=== PATIENT | male | born 1980 | race Caucasian/White ===

== ENCOUNTER 2017-09-26 18:46 | Emergency (ER) | payer OTHER ==
[2017-09-26 19:21] VITALS: BP 146/98; PULSE 72; TEMP 98.8; BMI 32.1
--- NOTE | 2017-09-26 19:21 | PDOC ---
Rapid Medical Evaluation Time Seen by Provider: 09/26/17 19:15 Medical Evaluation: 09/26/17 19:15 The patient presents with a chief complaint of: Swollen L cheek and ear pain since Friday. Possible tooth pain. Allergic to PCN (hives). Smokes a pack every three days. I have performed a brief in-person evaluation of this patient; Pertinent physical exam findings: lesion to gum near parotid gland in L mouth I have ordered the following: Nothing The patient will proceed to the ED for further evaluation.
--- NOTE | 2017-09-26 20:28 | PDOC ---
History of Present Illness - General Chief Complaint: Toothache Stated Complaint: PAIN Time Seen by Provider: 09/26/17 19:15 - History of Present Illness Initial Comments: 09/26/17 23:01 not seen by Val Past History - Past Medical History Allergies/Adverse Reactions: Allergies Allergy/AdvReac Type Severity Reaction Status Date / Time Penicillins Allergy Intermediate Verified 09/26/17 19:22 Home Medications: Ambulatory Orders Clindamycin [Cleocin -] 300 mg PO Q8H #30 capsule 09/26/17 Oxycodone HCl/Acetaminophen [Percocet 5-325 mg Tablet] 1 - 2 tab PO Q6H #20 tab MDD 8 09/26/17 - Suicide/Smoking/Psychosocial Hx Smoking History: Current every day smoker Have you smoked in the past 12 months: Yes Number of Cigarettes Smoked Daily: 5 Information on smoking cessation initiated: No Hx Alcohol Use: No Drug/Substance Use Hx: No *Physical Exam - Vital Signs Last Vital Signs Temp Pulse Resp BP Pulse Ox 98.8 F 72 68 H 146/98 100 09/26/17 19:14 09/26/17 19:14 09/26/17 19:14 09/26/17 19:14 09/26/17 19:14 *DC/Admit/Observation/Transfer Diagnosis at time of Disposition: Dental abscess - Discharge Dispostion Disposition: HOME Condition at time of disposition: Stable - Prescriptions Prescriptions: Clindamycin [Cleocin -] 300 mg PO Q8H #30 capsule Oxycodone HCl/Acetaminophen [Percocet 5-325 mg Tablet] 1 - 2 tab PO Q6H #20 tab MDD 8 - Referrals - Patient Instructions Printed Discharge Instructions: DI for Tooth Abscess Additional Instructions: Warm soaks to face, warm saltwater gargles Please follow-up with urgent care dental between 9 and 5 tomorrow [phone] - Post Discharge Activity Forms/Work/School Notes: Back to Work
--- NOTE | 2017-09-26 21:00 | PDOC ---
History of Present Illness - General Chief Complaint: Toothache Stated Complaint: PAIN Time Seen by Provider: 09/26/17 19:15 History Source: Patient Exam Limitations: No Limitations - History of Present Illness Initial Comments: 09/26/17 22:00 Patient is a [36-year-old male, denies any significant medical history currently on no medication presents with left lower first molar dental pain with facial swelling. Patient was seen at urgent care today and sent to emergency department for evaluation . Patient denies any fever, no difficulty swallowing, no difficulty breathing. Swelling is localized to lower lateral jaw line with no palpable lymphadenopathy. Past Medical History: [Denies]. Allergies: Penicillin Medications: [None-] Family History: Non-contributory Social History: Denies smoking, alcohol use, or IVDU Review of Systems GENERAL/CONSTITUTIONAL: [No fever or chills. No weakness. No weight change.] HEAD, EYES, EARS, NOSE AND THROAT: [No change in vision. No ear pain or discharge. No sore throat. Pain and swelling to left lateral lower gumline ] CARDIOVASCULAR: [No chest pain or shortness of breath.] RESPIRATORY: [No cough, wheezing, or hemoptysis.] GASTROINTESTINAL: [No nausea, vomiting, diarrhea or constipation. No rectal bleeding.] GENITOURINARY: [No dysuria, frequency, or change in urination.] MUSCULOSKELETAL: [No joint or muscle swelling or pain. No neck or back pain.] SKIN AND BREASTS: [No rash or easy bruising.] NEUROLOGIC: [No headache, vertigo, loss of consciousness, or loss of sensation.] PSYCHIATRIC: [No depression or anxiety.] ENDOCRINE: [No increased thirst. No abnormal weight change.] HEMATOLOGIC/LYMPHATIC: [No anemia, easy bleeding, or history of blood clots.] ALLERGIC/IMMUNOLOGIC: [No hives or skin allergy. No latex allergy.] Physical Exam: GENERAL: [The patient is awake, alert, and fully oriented, in no acute distress. ] HEAD: [Normal with no signs of trauma.] EYES: [Pupils equal, round and reactive to light, extraocular movements intact, sclera anicteric, conjunctiva clear.] ENT: [Ears normal, nares patent, oropharynx clear without exudates. Moist mucous membranes. No uvula deviation. Erythema, fullness noted to gumline lateral to left lower first molar. No Fluctuance. Edema noted localized to left lower jaw with no erythema or evidence of cellulitis] NECK: [Normal range of motion, supple without lymphadenopathy, JVD, or masses.] LUNGS: [Breath sounds equal, clear to auscultation bilaterally. No wheezes, and no crackles.] HEART: [Regular rate and rhythm, normal S1 and S2 without murmur, rub or gallop. ] ABDOMEN: [Soft, nontender, normoactive bowel sounds. No guarding, no rebound. No masses. No bruising or abrasions] MUSCULOSKELETAL: [Normal range of motion, no edema. No clubbing or cyanosis. No cords, erythema, or tenderness. No CVA Tenderness with fist.] NEUROLOGICAL: [Cranial nerves II through XII grossly intact. Normal speech, normal gait.] SKIN: [Warm, Dry, normal turgor, no rashes or lesions noted.] Past History - Past Medical History Allergies/Adverse Reactions: Allergies Allergy/AdvReac Type Severity Reaction Status Date / Time Penicillins Allergy Intermediate Verified 09/26/17 19:22 Home Medications: Ambulatory Orders Clindamycin [Cleocin -] 300 mg PO Q8H #30 capsule 09/26/17 Oxycodone HCl/Acetaminophen [Percocet 5-325 mg Tablet] 1 - 2 tab PO Q6H #20 tab MDD 8 09/26/17 - Suicide/Smoking/Psychosocial Hx Smoking History: Current every day smoker Have you smoked in the past 12 months: Yes Number of Cigarettes Smoked Daily: 5 Information on smoking cessation initiated: No Hx Alcohol Use: No Drug/Substance Use Hx: No *Physical Exam - Vital Signs Last Vital Signs Temp Pulse Resp BP Pulse Ox 98.8 F 72 68 H 146/98 100 09/26/17 19:14 09/26/17 19:14 09/26/17 19:14 09/26/17 19:14 09/26/17 19:14 Medical Decision Making - Medical Decision Making 09/26/17 22:03 A/P: Patient here for evaluation of tooth abscess, there is no swelling or extension of edema to lateral side of face it is localized to lower jawline, no fluctuance to gumline there is erythema with pain on palpation. I have called urgent care dental, patient to be seen in the a.m. at 9 AM. Will start patient on clindamycin, Percocet for pain. Patient with no difficulty swallowing, no difficulty breathing, no evidence of facial cellulitis. I discussed the physical exam findings, ancillary test results and final diagnoses with the patient. I answered all of the patient's questions. The patient was satisfied with the care received and felt comfortable with the discharge plan and treatment plan. The patient will call follow-up and will return to the Emergency Department with any new, persistant or worsening symptoms. *DC/Admit/Observation/Transfer Diagnosis at time of Disposition: Dental abscess - Discharge Dispostion Disposition: HOME Condition at time of disposition: Stable Admit: No - Prescriptions Prescriptions: Clindamycin [Cleocin -] 300 mg PO Q8H #30 capsule Oxycodone HCl/Acetaminophen [Percocet 5-325 mg Tablet] 1 - 2 tab PO Q6H #20 tab MDD 8 - Referrals - Patient Instructions Printed Discharge Instructions: DI for Tooth Abscess Additional Instructions: Warm soaks to face, warm saltwater gargles Please follow-up with urgent care dental between 9 and 5 tomorrow [phone] - Post Discharge Activity Forms/Work/School Notes: Back to Work
== END 2017-09-26 21:00 | disposition home or self-care (01) ==
LOC: JERFT 18:46
DX: K04.7 Periapical abscess without sinus (principal)
CPT/HCPCS: 99281-25